=== PATIENT | male | born 1970 | race African-American/Black ===

== ENCOUNTER → 2017-07-23 | Outpatient (CLI) | payer OTHER ==
[2017-07-23 15:25] LABS: ADD MAN DIFF? NO
[2017-07-23 15:37] LABS: BASO % 1 % (0-3); EOS % 0 % (0-3); HEMATOCRIT 38.5 % (39.0-53.0); HEMOGLOBIN 12.8 g/dL (13.0-17.5); LYMPH # 1.3 x10^3/uL (1.0-4.8); LYMPH % 27 % (24-48); MEAN CORPUSCULAR HEMOGLOBIN 28 pg (25-35); MEAN CORPUSCULAR HGB CONC 33 g/dL (31-37); MEAN CORPUSCULAR VOLUME 85 fL (79-100); MONO # 0.9 x10^3/uL (0.0-1.1); MONO % 18 % (0-9); NEUT # 2.7 x10^3uL (1.8-7.7); NEUT % 55 % (31-73); PLATELET COUNT 177 x10^3/uL (140-400); RED BLOOD COUNT 4.51 x10^6/uL (4.30-5.70); RED CELL DISTRIBUTION WIDTH 15.7 % (11.5-14.5); WHITE BLOOD COUNT 4.9 x10^3/uL (4.0-11.0)
[2017-07-23 20:13] LABS: NEGATIVE OBC STREP NEG; POSITIVE OBC STREP POS
[2017-07-23 20:15] LABS: INFLUENZA A PATIENT NEGATIVE (NEGATIVE); INFLUENZA B PATIENT NEGATIVE (NEGATIVE); OBC FLU VALID
== END | disposition home or self-care (01) ==
LOC: LAB 15:09
DX: J06.9 Acute upper respiratory infection, unspecified (principal); I10 Essential (primary) hypertension
CPT/HCPCS: 36415; 85025; 87804; 87804-59; 87880

== ENCOUNTER → 2019-03-31 | Outpatient (CLI) | payer MEDICAID ==
--- NOTE | 2019-03-31 14:28 | KCIC ---
EXAM: Dual energy x-ray absorptiometry (DEXA). HISTORY: Post menopausal screening. TECHNIQUE: Dual energy x-ray absorptiometry of the lumbar spine and the left hip was performed. T-score of average bone mineral density based was calculated based on standard deviations above or below the expected young adult normal value. Diagnostic definitions were established by the [employer]. FINDINGS: The average bone mineral density associated with L1-L4 is 1.365 g/cm^2, corresponding with a T-score of 2.5. The average total bone mineral density associated with the left hip is 1.420 g/cm^2, corresponding with a T-score of 2.6. No comparison examinations are available. Refer to the worksheets for full detail. IMPRESSION: 1. Normal. Average bone mineral density yields a T-score of -1.0 or greater. Fracture risk is low. Electronically signed by: Josie Álvarez MD (03/31/2019 2:25 PM) [facility]
== END | disposition home or self-care (01) ==
LOC: KCIC DEXA 12:08
PROVIDERS: ATTEND Internal Medicine Cardiovascular Disease
DX: M81.0 Age-related osteoporosis without current pathological fracture (principal); E55.9 Vitamin D deficiency, unspecified
CPT/HCPCS: 77080